=== PATIENT | male | born 1990 | race Caucasian/White ===

== ENCOUNTER 2019-07-31 18:17 | Emergency (ER) | payer OTHER ==
[~2019-07-31] VITALS: Ht 172.7 cm; Wt 104.3 kg
[2019-07-31 18:25] VITALS: BP_SYST 132
[2019-07-31] MEDS ORDERED: NACL 0.9% 1,000 ML IV ONE (18:35)
[2019-07-31 19:09] LABS: BASOPHILS % (AUTO) 0.4 % (0.0-2.0); EOSINOPHILS # (AUTO) 0.1 K/uL (0.0-0.4); EOSINOPHILS % (AUTO) 1.2 % (0.0-4.0); HEMATOCRIT 47.8 % (36-54); HEMOGLOBIN 16.5 g/dL (14.0-18.0); LYMPHOCYTES # (AUTO) 2.3 K/uL (1.0-5.5); LYMPHOCYTES % (AUTO) 29.6 % (20.5-51.5); MEAN CORPUSCULAR HEMOGLOBIN 30 pg (27-31); MEAN CORPUSCULAR HGB CONC 35 % (32-36); MEAN CORPUSCULAR VOLUME 88 fL (79.0-98.0); MONOCYTES # (AUTO) 0.6 K/uL (0.0-1.0); MONOCYTES % (AUTO) 7.2 % (1.7-9.3); NEUTROPHILS # (AUTO) 4.7 K/uL (1.8-7.7); NEUTROPHILS % (AUTO) 61.6 % (40.0-70.0); PLATELET COUNT (AUTO) 236 K/uL (130-430); RED BLOOD CELL COUNT(AUTO) 5.42 MIL/uL (4.2-6.2); RED CELL DISTRIBUTION WIDTH 13.2 % (9.0-15.0); WHITE BLOOD COUNT (AUTO) 7.7 K/uL (4.8-10.8)
[2019-07-31 19:12] LABS: POTASSIUM 3.6 mmol/L (3.5-5.1)
[2019-07-31 19:19] LABS: ALBUMIN 3.8 g/dL (3.4-4.8); TOTAL BILIRUBIN 0.7 mg/dL (0.0-1.0)
[2019-07-31 20:56] LABS: BILIRUBIN,URINE NEGATIVE (NEGATIVE); BLOOD, URINE 3+ (NEGATIVE); CLARITY/URINE CLEAR (CLEAR); COLOR,URINE YELLOW (YELLOW); GLUCOSE,URINE NEGATIVE (NEGATIVE); KETONES,URINE NEGATIVE (NEGATIVE); LEUKOCYTE ESTERASE ,URINE NEGATIVE (NEGATIVE); NITRITE, URINE NEGATIVE (NEGATIVE); PROTEIN URINE NEGATIVE (NEGATIVE); UROBILINOGEN,URINE 0.2 (0.2-1.0)
[2019-07-31 21:04] LABS: BACTERIA,URINE FEW /HPF (None Seen); WBC,URINE 0-3 /HPF (0-3)
[2019-07-31 21:05] LABS: MUCUS,URINE 2+ /LPF (None Seen)
[2019-07-31 21:18] VITALS: BP_SYST 126
== END 2019-07-31 21:18 | disposition home or self-care (01) ==
LOC: SED 18:17
DX: R10.31 Right lower quadrant pain (principal); Z88.2 Allergy status to sulfonamides
CPT/HCPCS: 36415; 74176; 80053; 81000; 85025; 99284; J7030